=== PATIENT | male | born 1945 | race Caucasian/White ===

== ENCOUNTER 2019-12-08 13:16 | Outpatient (CLI) | payer MEDICARE, BC ==
--- NOTE | 2019-12-08 14:16 | RAD ---
LUMBAR SPINE 4 VIEWS: Date: 12/08/2019 HISTORY: Lumbar region radiculopathy. FINDINGS: Dextroscoliosis. Multilevel disc osteophytosis. Postop changes at L5-S1. No significant abnormal zamudio slation between flexion and extension. Bony demineralization. IMPRESSION: Dextroscoliosis and bony demineralization. Postop changes L5-S1. No abnormal translation between flex ion and extension. POS: [facility]
== END 2019-12-08 13:17 | disposition home or self-care (01) ==
LOC: BICRAD 13:16
PROVIDERS: ATTEND Neurological Surgery
DX: M54.16 Radiculopathy, lumbar region (principal); M41.86 Other forms of scoliosis, lumbar region; M81.0 Age-related osteoporosis without current pathological fracture; Z98.890 Other specified postprocedural states
CPT/HCPCS: 72110

== ENCOUNTER 2020-03-10 09:03 | Outpatient (CLI) | payer MEDICARE, BC ==
--- NOTE | 2020-03-10 14:16 | MRI ---
MRI OF BRAIN WITHOUT CONTRAST: 03/10/20 INDICATIONS: Recent falls. FINDINGS: Mild cortical volume loss. Ventricles have normal size and position. Mild chronic ischemic white theresa er changes seen in both cerebral hemispheres. No evidence of restricted diffusion. No evidence of mas s or edema. The intracranial internal carotid arteries and partial cerebral arteries and basal arteries show expe cted flow voids. There is mucosal edema in the periphery of both maxillary sinuses. IMPRESSION: 1. Mild to moderate cortical volume loss. 2. Mild chronic ischemic white matter changes. 3. Mucosal edema in the maxillary sinuses. POS: [facility]
--- NOTE | 2020-03-10 14:49 | MRI ---
MRI OF THE LUMBAR SPINE WITHOUT CONTRAST: 03/10/20 INDICATIONS: Back pain. Recent fall. FINDINGS: Lumbar vertebrae maintain height. There is evidence of prior interbody fusion procedure at L5-S1. Thi s corresponds to plain films from 12/08/19. There are degenerative disc changes at the other levels. Loss of disc space with degenerative disc an d end plate changes are most pronounced at the L2-3 level. Prominent anterior osteophytes at this lev el. Posterolisthesis at L2-3 measures approximately 3 mm. Findings at each disc level are described: At L1-2, mild diffuse disc bulge abuts and mildly flattens the thecal sac. No central canal or forami nal stenosis. At L2-3, prominent degenerative disc and end plate changes as described above. Slight posterolisthesi s as noted above. Broad based disc bulge is present flattening the anterior thecal sac. There is mild facet arthrosis and hypertrophy. However, no significant central canal or foraminal stenosis is pres ent. At L3-4, there is an annular fissure with diffuse disc bulge flattening the thecal sac. Mild facet hy pertrophy. No significant central canal or foraminal stenosis. At L4-5, mild diffuse disc bulge flattens the anterior thecal sac. Mild facet hypertrophy. No signifi cant central canal or foraminal stenosis. At L5-S1, evidence of prior interbody fusion as noted above. No disc protrusion. No central canal or foraminal stenosis. IMPRESSION: 1. Multilevel degenerative disc changes which are most pronounced at the L2-3 level as described above. No significant central canal or foraminal stenosis apparent. 2. Prior fusion procedure at L5-S1 is noted. POS: [facility]
--- NOTE | 2020-03-10 15:04 | MRI ---
MRI CERVICAL SPINE WITHOUT CONTRAST: 03/10/20 INDICATIONS: Neck pain. Recent falls. FINDINGS: Moderate degenerative changes of the cervical spine. Anterior wedging of C3, C4, C5 and C6 vertebrae appear chronic with anterior osteophytes. Degenerative disc changes at all levels. Mild anterior subl uxation at C3-4 measured at 3 mm and posterior subluxation at C4-5 measured at approximately 3 mm. T hese subluxations are chronic and degenerative in nature. Findings at each level are described. C2-3: Mild asymmetric disc bulge to the right without central canal or foraminal stenosis. C3-4: Anterior subluxation. Posterior disc bulge and spondylosis abuts and mildly flattens the anteri or cord. A mild left foraminal stenosis secondary to facet and uncinate hypertrophy. C4-5: Posterior subluxation as described above. The posterior disc bulge and spondylosis abuts the an terior cord. Bilateral foraminal stenosis secondary to facet and uncinate hypertrophy. C5-6: Posterior disc bulge and spondylosis efface the anterior subarachnoid space. No evidence of cor d impingement. Bilateral foraminal stenosis due to facet and uncinate hypertrophy. C6-7: Posterior disc bulge and spondylosis flatten the anterior thecal sac. The anterior subarachnoid space is preserved. Mild bilateral foraminal stenosis. Cervical cord signal is normally preserved. IMPRESSION: Multilevel degenerative disc changes. Cord impingement most prominent at the C3-4 and C4-5 levels as described above. Foraminal stenosis at multiple levels. POS: [facility]
== END 2020-03-10 09:04 | disposition home or self-care (01) ==
LOC: TBSIIMAG 09:03
PROVIDERS: ATTEND Neurological Surgery
DX: G91.9 Hydrocephalus, unspecified (principal); M47.12 Other spondylosis with myelopathy, cervical region; M50.00 Cervical disc disorder with myelopathy, unspecified cervical region; M48.02 Spinal stenosis, cervical region; Z98.1 Arthrodesis status; J32.0 Chronic maxillary sinusitis; G93.89 Other specified disorders of brain
CPT/HCPCS: 70551; 72141; 72148